=== PATIENT | male | born 1950 | race Caucasian/White ===

== ENCOUNTER 2018-10-29 10:28 | Emergency (ER) | payer MEDICARE, OTHER, SELFPAY ==
--- NOTE | 2018-10-29 10:30 | NUR.NOTE ---
Nursing Note: pt hit head on sharp corner no LOC 3 cm laceration no other complaints pt is on plavix
[2018-10-29 10:32] VITALS: PULSE 77; RESP 16; TEMP 37; O2SAT 98
--- NOTE | 2018-10-29 10:38 | W.ED.GENAD ---
Discharge Plan Disposition Patient Disposition: HOME Condition: Good Discharge Details Chief Complaint: Laceration Clinical Impression: Laceration of scalp Primary Care Provider: None,None ED Provider: Geoffrey Huynh Home Meds and New Rx's Prescriptions: Continued atorvastatin [Lipitor] 40 MG tablet 1 tab PO DAILY RF: 0 amlodipine 5 MG tablet 1 tab PO DAILY RF: 0 triamterene-hydrochlorothiazid 1 EACH capsule 1 cap PO DAILY RF: 0 omeprazole 20 MG capsule,delayed release(DR/EC) 1 cap PO DAILY RF: 0 doxycycline hyclate 20 MG tablet 1 tab PO BID RF: 0 losartan 100 MG tablet 1 tab PO DAILY RF: 0 clopidogrel 75 mg Tablet 75 mg PO DAILY RF: 0 aspirin [Aspir-81] 81 mg Tablet,Delayed Release (Dr/Ec) 81 mg PO DAILY RF: 0 losartan 100 mg Tablet 100 mg PO DAILY RF: 0 ezetimibe 10 mg Tablet 10 mg PO DAILY RF: 0 metoprolol succinate 25 mg Capsule,Sprinkle,Er 24hr 25 mg PO DAILY RF: 0 Discharge Instructions Instructions: Laceration (ED), Staple Care (ED) Additional Instructions: Please leave the dressing on for 24 hours, then you may remove and begin cleaning the wound at least twice a day with soap and water. Continue to apply antibiotic ointment. Do not directly soak the area. Watch for any signs of infection and return if any increasing redness, swelling, pain, drainage. Please return in 7 to 10 days for wound reassessment and staple removal. If you notice any worsening of your symptoms, or any new symptoms such as vomiting, diarrhea, fever, chills, shortness of breath, chest pain, numbness, weakness, or fainting , please return immediately to the emergency department for reevaluation. Please follow up with your primary care provider as soon as possible for reassessment and reevaluation. As always, it was a pleasure participating in your medical care today. Medical Decision Making This is a pleasant 68-year-old male who is a past medical history of cardiac disease with a stent who takes daily Plavix who presents today for laceration on his scalp. About an hour ago he hit his scalp on the edge of his camper, causing a small laceration to the scalp. No significant deformity, no active bleeding at this time. No other significant abnormalities at this time. Neurologic exam is normal. Tetanus is up-to-date. We discussed risks and benefits of imaging, the patient is agreed to CT scan of the head at this time. We will stapled the scalp and reassess. [address] scan read has returned negative per Dr. Schwartz for any acute fracture or intracranial bleed. Neurologic exam remains normal. 5 erica were placed for good wound edge reapproximation. Bleeding is stopped, copious irrigation was used, vigorous scrubbing with chlorhexidine scrub was utilized, Patient tolerated this all well. Patient will be discharged home with customary instructions for erica, appropriate timing for removal as well. We discussed red flags which to return. At this time I feel that the patient is stable for discharge with no evidence of acute intercranial process. I have extensively reviewed the treatment plan and discharge instructions with the patient and their family. I have addressed all patient concerns at this time. The patient and family was made aware of what symptoms to monitor for that would warrant a return to the emergency department. Discussed the plan with the patient and family, they demonstrate verbal understanding and agreement with our assessment and plan at this time. HPI General Date/Time Provider Initiated Documentation: 10/29/18 10:35. HPI Narrative: This is a 68-year-old male with a past medical history of a cardiac stent on Plavix, hypertension high cholesterol who presents today after hitting his head on the edge of his camper. This happened an hour ago. He had no loss of consciousness. He recalls the entire event. He was on a hard clean angle of the camper. It was metal. Tetanus was updated in 2013. He denies any other complaints at this time. No numbness, tingling, weakness, vision changes. He does have mild headache. He has taken his Plavix today. Related Data Home Medications Medication Instructions Recorded Confirmed amlodipine 1 tab PO DAILY 09/17/13 10/29/18 atorvastatin [Lipitor] 1 tab PO DAILY 09/17/13 10/29/18 doxycycline hyclate 1 tab PO BID 09/17/13 10/29/18 losartan 1 tab PO DAILY 09/17/13 10/29/18 omeprazole 1 cap PO DAILY 09/17/13 10/29/18 triamterene-hydrochlorothiazid 1 cap PO DAILY 09/17/13 10/29/18 aspirin [Aspir-81] 81 mg PO DAILY 10/29/18 10/29/18 clopidogrel 75 mg PO DAILY 10/29/18 10/29/18 ezetimibe 10 mg PO DAILY 10/29/18 10/29/18 losartan 100 mg PO DAILY 10/29/18 10/29/18 metoprolol succinate 25 mg PO DAILY 10/29/18 10/29/18 Allergies Allergy/AdvReac Type Severity Reaction Status Date / Time No Known Allergies Allergy Unverified 10/29/18 10:33 General Stated Complaint: Laceration OTILIA: 4 Review of Systems Review of Systems All systems reviewed & are unremarkable except as noted in HPI and below PFSH Social History Smoking/Tobacco Use Status: Never Alcohol Intake: current Alcohol Intake frequency: holidays/special occasions only Alcohol type: wine Drug use: Never Substance use type: does not use Do you feel safe at home: Yes Do you feel safe in your relationship?: Yes Exam Narrative Exam Narrative: 1.Const: Well-nourished, Well-developed, appearing stated age 2.Eyes: PERRL, no conjunctival injection, and symmetrical lids. 3.ENT: Atraumatic external nose and ears. Moist MM. Neck: Symmetric, trachea midline, No thyromegaly. There is no evidence of raccoon eyes, lynn sign, CSF rhinorrhea, mastoid tenderness, cranial crepitus, hemotympanum, exophthalmos, or hyphema. Patient demonstrates intact dentition with no signs of tooth avulsion or fracture, no signs of jaw deformity, no evidence of a LeFort's fracture, with an intact palate, nose and orbital region. There is no evidence of a nasal septal hematoma. No proptosis. Jaw closes symmetrically. Airway is clear. 4.CVS: +S1/S2, No murmurs or gallops. Peripheral pulses 2+ and equal in all extremities. Brisk capillary refill in all extremities. 5.RESP: Unlabored respiratory effort. Clear to auscultation bilaterally. No wheezes rales or rhonchi 6.GI: Soft, Nontender/Nondistended, No hepatosplenomegaly. No guarding or rebound. 7.MSK: Normocephalic/Atraumatic, Extremities w/o deformity or ttp No cyanosis or clubbing, Normal movement of all extremities 8.Skin: Mild 3 cm linear laceration on the patient's scalp, no active bleeding. No evidence of bony involvement. Mild hematoma just lateral to it. No depression on the skull. 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 Sensation grossly intact, no focal neurologic deficits. All 6 cardinal planes of vision are fully intact. No evidence of rotatory or vertical nystagmus. The patient demonstrated a normal [id number], good dexterity. There was no evidence of dysdiadochokinesia. Patient was able to ambulate without difficulty. There was no wide-based gait. Romberg, and [id number] are both normal on testing. Sensation was intact bilaterally as well as muscle strength bilaterally for all extremities. Patient was able to verbalize butter cup with no slurring, or miss pronunciation. 10.Psych: (AAO) x3. Appropriate mood and affect Course Vital Signs Temperature 37.0 C 10/29/18 10:32 Pulse 77 10/29/18 10:32 Respiratory Rate 16 10/29/18 10:32 Pulse Oximetry 98 10/29/18 10:32 Temperature 37.0 C 10/29/18 10:32 Temperature Source Skin 10/29/18 10:32 Pulse 77 10/29/18 10:32 Respiratory Rate 16 10/29/18 10:32 Pulse Oximetry 98 10/29/18 10:32 Oxygen Delivery Method Room Air 10/29/18 10:32 Oxygen Flow Rate 0 10/29/18 10:32 Pain Level 2 10/29/18 10:32 Procedures Laceration Laceration 1: Site: scalp Side (If applicable): left Size (cm): 3 Description: linear Depth: simple, single layer Local Anesthetic: Lidocaine 1% Amount of anesthesia used (mL): 5 Pre-repair: wound explored, irrigated extensively and deep structures intact Skin layer closed with: other (erica) Number of sutures: 5 Technique: simple, interrupted
--- NOTE | 2018-10-29 10:41 | NUR.NOTE ---
Nursing Note: PT reports that he hit his head on the slide of his RV. Denied loss of consciousness. Pt has 3-4cm laceration to top of head. Teatnus up to date.
--- NOTE | 2018-10-29 11:00 | DI.CT_ITS ---
SYMPTOM/DIAGNOSIS: HIT HEAD, BLEEDING , ON THINNER NONCONTRAST HEAD CT: There are no prior comparison exams. A left sided scalp contusion is seen near the vertex. No intracranial hemorrhage or skull fracture is seen. There is a left basal ganglia old lacunar infarct No mass or acute infarct is seen. IMPRESSION: Scalp injury. No skull fracture or intracranial hemorrhage.
== END 2018-10-29 11:57 | disposition home or self-care (01) ==
LOC: ER 11:55
PROVIDERS: Emergency Provider Student in an Organized Health Care Education/Training Program
DX: S01.01XA Laceration without foreign body of scalp, initial encounter (principal); W22.8XXA Striking against or struck by other objects, initial encounter; Z79.02 Long term (current) use of antithrombotics/antiplatelets; I10 Essential (primary) hypertension
CPT/HCPCS: 12002; 99284; 70450; 99283

== ENCOUNTER 2018-11-04 10:02 | Emergency (ER) | payer MEDICARE, OTHER, SELFPAY ==
[2018-11-04 10:12] VITALS: BP 133/77; PULSE 68; RESP 16; TEMP 36.6; O2SAT 95
--- NOTE | 2018-11-04 10:39 | ED.GENADUL_ITS ---
Discharge Plan Disposition Patient Disposition: HOME Condition: Good Discharge Details Chief Complaint: SutureRem Clinical Impression: Encounter for staple removal Primary Care Provider: None,None ED Provider: Darek Cespedes Home Meds and New Rx's Prescriptions: No Action atorvastatin [Lipitor] 40 MG tablet 1 tab PO DAILY RF: 0 amlodipine 5 MG tablet 1 tab PO DAILY RF: 0 triamterene-hydrochlorothiazid 1 EACH capsule 1 cap PO DAILY RF: 0 omeprazole 20 MG capsule,delayed release(DR/EC) 1 cap PO DAILY RF: 0 losartan 100 MG tablet 1 tab PO DAILY RF: 0 clopidogrel 75 mg Tablet 75 mg PO DAILY RF: 0 aspirin [Aspir-81] 81 mg Tablet,Delayed Release (Dr/Ec) 81 mg PO DAILY RF: 0 losartan 100 mg Tablet 100 mg PO DAILY RF: 0 ezetimibe 10 mg Tablet 10 mg PO DAILY RF: 0 metoprolol succinate 25 mg Capsule,Sprinkle,Er 24hr 25 mg PO DAILY RF: 0 Discharge Instructions Instructions: Acute Wound Care (ED) Additional Instructions: Return for any new or worsening signs or symptoms or signs of infection. Otherwise follow-up with your primary care provider as needed Referrals: Primary Care Provider [Outside] Discharge Data Discharge Date/Time-TO BE ENTERED AT DEPARTURE: 11/04/18 10:49 Medical Decision Making Patient presenting the emergency department for staple removal. Patient had head injury 6 days ago states healing well denies any current symptoms. Patient has 5 erica placed in the left side of the vertex of the skull with no dehiscence, no purulent drainage, no surrounding erythema. Erica removed wit hout incident. Patient encouraged to continue to keep wound clean and dry and return for any signs of infection. After discussion of diagnosis and plan of care patient has no further needs, questions, or concerns and states clear understanding to return to the emergency department for any worsening symptoms. HPI General Mode of arrival: ambulatory . Date/Time Provider Initiated Documentation: 11/04/18 10:31 . Limitations to Documentation: no limitations . Information obtained by: patient, RN notes reviewed and old records reviewed . History of Present Illness 68 year old M presents to the emergency department with the chief complaint of Staple removal, Quality is described as other (Denies pain or discomfort), and is localized to the head. Patient started experiencing this day(s) (6) Patient notes no other symptoms.. Related Data Home Medications Medication Instructions Recorded Confirmed amlodipine 1 tab PO DAILY 09/17/13 11/04/18 atorvastatin [Lipitor] 1 tab PO DAILY 09/17/13 11/04/18 losartan 1 tab PO DAILY 09/17/13 11/04/18 omeprazole 1 cap PO DAILY 09/17/13 11/04/18 triamterene-hydrochlorothiazid 1 cap PO DAILY 09/17/13 11/04/18 aspirin [Aspir-81] 81 mg PO DAILY 10/29/18 11/04/18 clopidogrel 75 mg PO DAILY 10/29/18 11/04/18 ezetimibe 10 mg PO DAILY 10/29/18 11/04/18 losartan 100 mg PO DAILY 10/29/18 11/04/18 metoprolol succinate 25 mg PO DAILY 10/29/18 11/04/18 Allergies Allergy/AdvReac Type Severity Reaction Status Date / Time No Known Allergies Allergy Unverified 11/04/18 10:14 General Stated Complaint: SutureRem OTILIA: 5 Review of Systems Constitutional Denies chills and Denies fever(s) Integumentary/Breasts Reports as per HPI, Denies rash and Denies skin swelling PFSH Social History Smoking/Tobacco Use Status: Never Alcohol Intake: current Alcohol Intake frequency: holidays/special occasions only Alcohol type: wine Drug use: Never Substance use type: does not use Do you feel safe at home: Yes Do you feel safe in your relationship?: Yes Exam Const General: cooperative, comfortable and no acute distress Orientation: alert, awake and oriented x3 Skin Rashes: no rashes Trauma: laceration (Vertex skull laceration without erythema, purulence, or dehiscence. ) Course Vital Signs Temperature 36.6 C 11/04/18 10:12 Pulse 68 11/04/18 10:12 Respiratory Rate 16 11/04/18 10:12 Blood Pressure 133/77 11/04/18 10:12 Pulse Oximetry 95 11/04/18 10:12 Temperature 36.6 C 11/04/18 10:12 Temperature Source Skin 11/04/18 10:12 Pulse 68 11/04/18 10:12 Respiratory Rate 16 11/04/18 10:12 Respiratory Effort Non-Labored 11/04/18 10:12 Blood Pressure 133/77 11/04/18 10:12 Blood Pressure Position Sitting 11/04/18 10:12 Pulse Oximetry 95 11/04/18 10:12 Oxygen Delivery Method Room Air 11/04/18 10:12 Oxygen Flow Rate 0 11/04/18 10:12 Pain Level 0 11/04/18 10:12
== END 2018-11-04 10:49 | disposition home or self-care (01) ==
PROVIDERS: Emergency Provider Nurse Practitioner Family
DX: S01.01XD Laceration without foreign body of scalp, subsequent encounter (principal); W22.8XXD Striking against or struck by other objects, subsequent encounter; Z48.02 Encounter for removal of sutures

== ENCOUNTER 2019-07-30 11:51 | Emergency (ER) | payer MEDICARE, OTHER, BC, SELFPAY ==
[2019-07-30 11:58] VITALS: BP 148/95; PULSE 78; RESP 18; TEMP 36.3; O2SAT 95
--- NOTE | 2019-07-30 12:16 | DI.CT_ITS ---
EXAM: CT RENAL COLIC WO CLINICAL HISTORY: L flank/LLQ abd pain, r/o stone. TECHNIQUE: Imaging Protocol: Axial computed tomography images with coronal and sagittal reformatted images were created and reviewed. Oral: / no COMPARISON: No exams were available for comparison FINDINGS: ABDOMEN: Lung Bases: Dependent changes.. Liver: Normal density. No measurable mass. Gallbladder and biliary tract: No radiodense calculus or dilation. Pancreas: Normal density, no abnormal calcifications or inflammatory process. Spleen: Normal. Kidneys: Normal size, contour and axis. No masses seen. There is mild dilatation of the left renal pe lvis and left ureter, consistent with a recently passed stone. No renal or ureteral calculi are seen. Adrenal glands: No masses seen. Lymph nodes: Within normal limits. Abdominal Aorta: Abdominal portion non-dilated. Minimal calcification. PELVIS: Bladder: There is a 2 millimeter stone seen in the in the dependent portion of the urinary bladder. No mass or no gross wall thickening. Bowel: Sigmoid diverticulosis. No obstruction or bowel wall thickening. Normal appendix. Peritoneal cavity: No ascites, collection or mesenteric inflammatory response. Reproductive organs: Within normal limits. Bones: Mild degenerative changes.. IMPRESSION: 2 millimeter stone in the urinary bladder. Mild left hydronephrosis.. RADIATION DOSE DELIVERED: 1,114.59mGy.cm Total DLP 1,114.59mGy.cm Total DLP DATA REPOSITORY: All CT scans at this facility are submitted to the National Radiology Data Registry (NRDR) Dose Index Registry (DIR) with the [employer] (A[employer]). RADIATION OPTIMIZATION: All CT scans at this facility use at least one of these dose optimization te chniques: automated exposure control; mA and/or kV adjustment per patient size (includes targeted exa ms where dose is matched to clinical indication); or iterative reconstruction.
--- NOTE | 2019-07-30 12:18 | W.ED.GENAD ---
Discharge Plan Disposition Patient Disposition: HOME Condition: Improving Discharge Details Chief Complaint: Abd Prob Clinical Impression: Ureterolithiasis Primary Care Provider: None,None ED Provider: Lucero Leggett Home Meds and New Rx's Prescriptions: Continued atorvastatin [Lipitor] 40 MG tablet 1 tab PO DAILY RF: 0 amlodipine 5 MG tablet 1 tab PO DAILY RF: 0 triamterene-hydrochlorothiazid 1 EACH capsule 1 cap PO DAILY RF: 0 omeprazole 20 MG capsule,delayed release(DR/EC) 1 cap PO DAILY RF: 0 clopidogrel 75 mg Tablet 75 mg PO DAILY RF: 0 aspirin [Aspir-81] 81 mg Tablet,Delayed Release (Dr/Ec) 81 mg PO DAILY RF: 0 losartan 100 mg Tablet 100 mg PO DAILY RF: 0 ezetimibe 10 mg Tablet 10 mg PO DAILY RF: 0 metoprolol succinate 25 mg Capsule,Sprinkle,Er 24hr 25 mg PO DAILY RF: 0 Discharge Instructions Instructions: Kidney Stones (ED) Additional Instructions: Drink plenty of fluids and get plenty of rest. Alternate tylenol and motrin as needed and directed for pain. Follow-up with urology for reevaluation as indicated. Return to the emergency department with any worsening or new concerning symptoms. Referrals: Adonay Ochoa MD [ [facility] STAFF PHYSICIAN] - Discharge Data Discharge Date/Time-TO BE ENTERED AT DEPARTURE: 07/30/19 15:54 Discharge Physician: Lucero Leggett Medical Decision Making 3622 -- 69-year-old male with a history of kidney stones, coronary artery disease with one cardiac stent, GERD, hypertension and hyperlipidemia presents with left lower quadrant abdominal pain since this morning with development of left flank pain and nausea while in the ED. No abdominal tenderness or CVA tenderness. He appears nontoxic but slightly uncomfortable. Differential diagnosis includes kidney stone, diverticulitis, muscle strain, colitis, constipation. Will place an IV, bolus IV fluids, screening labs, urinalysis, CT renal colic, morphine and Zofran. Patient takes aspirin and Plavix will hold on NSAIDs at this time. 1300 --patient reassessed -pain and nausea resolved. 1400 --labs and imaging reviewed. Normal white blood cell count. Normal renal function. Urinalysis notes blood but no obvious infection. CT notes 2 mm stone in the urinary bladder with findings of mild hydronephrosis consistent with recently passed stone. Patient feels significantly better and feels good to go home. Patient placed on urology follow-up list. Advised to alternate Tylenol and Motrin. Usual and customary return precautions given prior to discharge. Medical Records Medical records reviewed: Yes I reviewed the patient's medical records. Imaging Data Radiologic Study: Radiologist's impression: CT RENAL COLIC WO CLINICAL HISTORY: L flank/LLQ abd pain, r/o stone. TECHNIQUE: Imaging Protocol: Axial computed tomography images with coronal and sagittal reformatted images were created and reviewed. Oral: / no COMPARISON: No exams were available for comparison FINDINGS: ABDOMEN: Lung Bases: Dependent changes.. Liver: Normal density. No measurable mass. Gallbladder and biliary tract: No radiodense calculus or dilation. Pancreas: Normal density, no abnormal calcifications or inflammatory process. Spleen: Normal. Kidneys: Normal size, contour and axis. No masses seen. There is mild dilatation of the left renal pelvis and left ureter, consistent with a recently passed stone. No renal or ureteral calculi are seen. Adrenal glands: No masses seen. Lymph nodes: Within normal limits. Abdominal Aorta: Abdominal portion non-dilated. Minimal calcification. PELVIS: Bladder: There is a 2 millimeter stone seen in the in the dependent portion of the urinary bladder. No mass or no gross wall thickening. Bowel: Sigmoid diverticulosis. No obstruction or bowel wall thickening. Normal appendix. Peritoneal cavity: No ascites, collection or mesenteric inflammatory response. Reproductive organs: Within normal limits. Bones: Mild degenerative changes.. IMPRESSION: 2 millimeter stone in the urinary bladder. Mild left hydronephrosis.. Lab Data Lab results reviewed: Yes I reviewed the patient's lab results. Labs: Laboratory Tests Range/Units 07/30/19 07/30/19 07/30/19 12:20 12:20 13:30 WBC (4.4-10.8) k/cumm 6.63 RBC (4.50-6.00) m/cumm 4.26 L Hgb (13.5-17.5) g/dL 12.4 L Hct (40.0-50.0) % 37.3 L MCV (80-95) fL 87.6 MCH (27.0-33.0) pg 29.1 MCHC (32.0-36.0) g/dL 33.2 RDW (11.8-14.1) % 15.6 H Plt Count (130-400) x1000/uL 263 MPV (8.0-11.0) fL 9.8 Immature Gran % % 0.2 Neutrophils % 63.4 Lymphocytes % 24.4 Monocytes % 11.2 Eosinophils % 0.5 Basophils % 0.3 Absolute Neutrophils (1.2-6.7) k/cumm 4.21 Absolute Lymphocytes (1.2-3.4) k/cumm 1.62 Absolute Monocytes (0.11-0.7) k/cumm 0.74 H Absolute Eosinophils (0.0-0.7) k/cumm 0.03 Absolute Basophils (0.0-0.2) k/cumm 0.02 Sodium (136-145) mmol/L 138 Potassium (3.5-5.1) mmol/L 3.7 Chloride (98-107) mmol/L 103 Carbon Dioxide (21.0-32.0) mmol/L 25.5 Anion Gap (3-11) mmol/L 9.5 BUN (7-18) mg/dL 22 H Creatinine (0.70-1.30) mg/dL 1.19 Estimated GFR/1.73 m2 (mL/min/1.73m2) >= 60.00 Glucose (74-106) mg/dL 112 H Calcium (8.5-10.1) mg/dL 9.1 Total Bilirubin (0.2-1.0) mg/dL 0.9 AST (15-37) U/L 20 ALT (16-63) U/L 26 Alkaline Phosphatase (46-116) U/L 62 Total Protein (6.4-8.2) g/dL 7.2 Albumin (3.4-5.0) g/dL 3.7 Urine Color (Yellow) Yellow Urine Clarity (Clear) Clear Urine pH (5-8) 7.0 Ur Specific May (1.005-1.025) 1.020 Urine Protein (Negative) mg/dL Negative Urine Ketones (Negative) mg/dL Negative Urine Blood (Negative) Moderate H Urine Nitrite (Negative) Negative Urine Bilirubin (Negative) Negative Urine Urobilinogen (Up TO 0.2) EU/dL 1.0 H Ur Leukocyte Esterase (Negative) Negative Urine RBC (0-2) HPF >50 H Urine WBC (0-5) HPF 0-2 Ur Epithelial Cells (Negative) HPF Rare Urine Crystals (Negative) HPF Negative Urine Bacteria (Negative) HPF Rare Urine Casts (Negative) LPF Negative Urine Mucus (Negative) Trace Urine Other (Negative) Ur Culture Indicated? No Urine Glucose (Negative) mg/dL Negative HPI General Mode of arrival: ambulatory. Date/Time Provider Initiated Documentation: 07/30/19 11:51. Limitations to Documentation: no limitations. Information obtained by: patient. HPI Narrative: Patient is a 69-year-old male with a history of kidney stones, cad with h/o coronary stent, thoracic aortic aneurysm, GERD, hypertension hyperlipidemia presents with crampy left lower quadrant abdominal pain since 8 AM this morning. He states the pain is intermittent, located only in the left lower quadrant, without aggravating or alleviating factors. He has not taken any medication for pain. He states the pain is currently 4/10. He denies any fever, nausea, vomiting, diarrhea, urinary symptoms, chest pain, shortness of breath or cough. He initially stated during evaluation that the pain was not similar to previous kidney stone, however during examination, patient developed left flank pain and nausea which appeared consistent with previous kidney stone. Related Data Home Medications Medication Instructions Recorded Confirmed amlodipine 1 tab PO DAILY 09/17/13 07/30/19 atorvastatin [Lipitor] 1 tab PO DAILY 09/17/13 07/30/19 omeprazole 1 cap PO DAILY 09/17/13 07/30/19 triamterene-hydrochlorothiazid 1 cap PO DAILY 09/17/13 07/30/19 aspirin [Aspir-81] 81 mg PO DAILY 10/29/18 07/30/19 clopidogrel 75 mg PO DAILY 10/29/18 07/30/19 ezetimibe 10 mg PO DAILY 10/29/18 07/30/19 losartan 100 mg PO DAILY 10/29/18 07/30/19 metoprolol succinate 25 mg PO DAILY 10/29/18 07/30/19 Allergies Allergy/AdvReac Type Severity Reaction Status Date / Time No Known Allergies Allergy Unverified 11/04/18 10:14 General Stated Complaint: Abd Prob OTILIA: 3 Review of Systems All systems reviewed & are unremarkable except as noted in HPI and below Constitutional Constitutional: Reports as per HPI, Denies chills and Denies fever(s) Eyes Eyes: Denies blurry vision ENT Ears, Nose, Mouth, and Throat: Denies dizziness, Denies sore throat and Denies throat swelling Cardiovascular Cardiovascular: Denies chest pain and Denies dyspnea Respiratory Respiratory: Denies cough and Denies dyspnea Gastrointestinal Gastrointestinal: Reports abdominal pain, Denies diarrhea and Denies vomiting Genitourinary Genitourinary: Denies hematuria, Denies dysuria and Reports other (L flank pain) Musculoskeletal Musculoskeletal: Denies back pain and Denies numbness Integumentary/Breasts Skin/Breast: Denies lesions and Denies rash Neurologic Neurologic: Denies dizziness, Denies localized weakness and Denies numbness Allergic/Immunologic Allergic/Immunologic: Denies throat swelling [facility] Medical History (Updated 07/30/19 @ 14:19 by Lucero Leggett DO) CAD (coronary atherosclerotic disease) (Acute) GERD (gastroesophageal reflux disease) (Chronic) HTN (hypertension) (Chronic) Hx of hyperlipidemia (Acute) Thoracic aortic aneurysm (Acute) Surgical History (Updated 07/30/19 @ 12:32 by Lucero Leggett DO) Femur fracture (Acute) History of coronary artery stent placement (Chronic) Social History Smoking/Tobacco Use Status: Never Alcohol Intake: current Alcohol Intake frequency: holidays/special occasions only Alcohol type: wine Drug use: Never Substance use type: does not use Do you feel safe at home: Yes Do you feel safe in your relationship?: Yes Exam Const General: cooperative, healthy appearing and no acute distress HENMT Head: normal to inspection Face and sinus: normal facial exam Eyes General: appearance normal, both eyes and all related structures Pupils: PERRL EOM: EOM intact bilaterally Neck Neck: normal visual inspection and No submandibular swelling Lymphatic: no lymphadenopathy noted Chest Chest: normal inspection of the chest and no tenderness Resp Effort & Inspection: normal respiratory effort and able to speak in complete sentences Auscultation: clear to auscultation bilaterally Cardio Rate: regular rate Rhythm: regular rhythm GI Inspection: normal to inspection Palpation: soft, not firm, not rigid and nontender Auscultation: normal bowel sounds Male General Exam: Yes normal external exam Back/Spine/Pelvis Back: no CVA tenderness Skin General skin exam: no rashes or lesions noted Neuro General: patient alert, patient awake and patient oriented x3 Cognition: normal cognition Speech: speech normal Motor: muscle tone normal throughout Sensory Exam: no sensory deficits noted Extrem General: normal to inspection, full ROM, capillary refill normal, no calf tenderness bilaterally and no edema Psych Appearance: grossly normal Mental Status: mental status grossly normal Speech and Movement: speech and movement normal Affect: normal affect Course Vital Signs Vital signs: Vital Signs Temperature 97.3 F L 07/30/19 11:58 Pulse 78 07/30/19 11:58 Respiratory Rate 18 07/30/19 11:58 Blood Pressure 148/95 H 07/30/19 11:58 Pulse Oximetry 95 07/30/19 11:58 Temperature 97.3 F L 07/30/19 11:58 Temperature Source Temporal Artery Scan 07/30/19 11:58 Pulse 78 07/30/19 11:58 Respiratory Rate 18 07/30/19 11:58 Respiratory Effort 07/30/19 12:08 Blood Pressure 148/95 H 07/30/19 11:58 Blood Pressure Position Sitting 07/30/19 11:58 Pulse Oximetry 95 07/30/19 11:58 Oxygen Delivery Method Rescue 2 Compact CPAP 07/30/19 11:58 Oxygen Flow Rate 0 07/30/19 11:58 Pain Level 7 07/30/19 11:58
[2019-07-30] MEDS: Ondansetron 4 MG/2 ML VIAL IVP (12:19)
[2019-07-30 12:43] LABS: Abs Immature Grans 0.01 k/cumm (0.0-0.09); Absolute Basophil Count 0.02 k/cumm (0.0-0.2); Absolute Eosinophil Count 0.03 k/cumm (0.0-0.7); Absolute Lymphocyte Count 1.62 k/cumm (1.2-3.4); Absolute Monocyte Count 0.74 k/cumm (0.11-0.7); Absolute Neutrophil Count 4.21 k/cumm (1.2-6.7); Basophils % 0.3; Eosinophils % 0.5; HCT 37.3 % (40.0-50.0); HGB 12.4 g/dL (13.5-17.5); Immature Grans % 0.2 %; Lymphocytes % 24.4; Mean Corp. HGB Concentration 33.2 g/dL (32.0-36.0); Mean Corpuscular Hemoglobin 29.1 pg (27.0-33.0); Mean Corpuscular Volume 87.6 fL (80-95); Mean Platelet Volume 9.8 fL (8.0-11.0); Monocytes % 11.2; Neutrophils % 63.4; Platelet Count 263 x1000/uL (130-400); RBC 4.26 m/cumm (4.50-6.00); RBC Distribution Width 15.6 % (11.8-14.1); White Blood Cell Count 6.63 k/cumm (4.4-10.8)
[2019-07-30 13:01] LABS: ALT 26 U/L (16-63); AST 20 U/L (15-37); Albumin 3.7 g/dL (3.4-5.0); Alkaline Phosphatase 62 U/L (46-116); Anion Gap 9.5 mmol/L (3-11); BUN 22 mg/dL (7-18); Bilirubin, Total 0.9 mg/dL (0.2-1.0); CO2 25.5 mmol/L (21.0-32.0); CREATININE 1.19 mg/dL (0.70-1.30); Calcium 9.1 mg/dL (8.5-10.1); Chloride 103 mmol/L (98-107); Glucose 112 mg/dL (74-106); Potassium 3.7 mmol/L (3.5-5.1); Sodium 138 mmol/L (136-145); Total Protein 7.2 g/dL (6.4-8.2)
[2019-07-30] MEDS: Normal Saline 1,000 ML 1000 ML IV (13:20)
[2019-07-30 13:37] LABS: Bilirubin Negative (Negative); Blood Moderate (Negative); Clarity Clear (Clear); Glucose Negative (Negative); Ketones Negative (Negative); Leukocyte Esterase Negative (Negative); Nitrite Negative (Negative)
[2019-07-30 13:49] LABS: Bacteria Rare HPF (Negative); Casts Negative LPF (Negative); Crystals Negative HPF (Negative); Epithelial Cells Rare HPF (Negative); Mucus Trace (Negative); RBC >50 HPF (0-2); WBC 0-2 HPF (0-5)
[2019-07-30 13:50] LABS: C & S Indicated? No
[2019-07-30 14:41] VITALS: BP 128/85; PULSE 63; RESP 18; TEMP 36.7; O2SAT 95
--- NOTE | 2019-07-30 23:14 | NUR.NOTE ---
Referred to urology for kidney stones. Nursing Note:
== END 2019-07-30 15:54 | disposition home or self-care (01) ==
PROVIDERS: Emergency Provider Physician Assistant
DX: N13.2 Hydronephrosis with renal and ureteral calculous obstruction (principal); R11.0 Nausea; Z87.442 Personal history of urinary calculi; I10 Essential (primary) hypertension
CPT/HCPCS: 36415; 80053; 96361; 96374; 96375; 99284; 74176; 81003; 81015; 85025; 99285; J2405